=== PATIENT | female | born 1985 | race Caucasian/White ===

== ENCOUNTER 2017-04-09 12:15 | Observation (INO) | payer OTHER ==
[~2017-04-09] VITALS: Ht 162.6 cm; Wt 75.3 kg
[~2017-04-09 12:15] MED LIST: IBUP-2070 BU; PREN1TAB80 PO
[2017-04-09 13:11] VITALS: BP 100/62
[2017-04-09] MEDS ORDERED: RINGERS SOLUTION,LACTATED 1,000 ML IV SCH (14:45)
[2017-04-09] MEDS ORDERED: RINGERS SOLUTION,LACTATED 1,000 ML IV ONE (14:45)
[2017-04-09] MEDS ORDERED: NIFEdipine 10 MG CAPSULE PO ONE (14:45)
== END 2017-04-09 20:00 | disposition home or self-care (01) ==
LOC: 4S 12:15
PROVIDERS: ADMIT Obstetrics & Gynecology; ATTEND Obstetrics & Gynecology
DX: O26.893 Other specified pregnancy related conditions, third trimester (principal); R10.30 Lower abdominal pain, unspecified; Z3A.36 36 weeks gestation of pregnancy
CPT/HCPCS: 59025; 96360; 96361; G0378; J7120

== ENCOUNTER 2017-04-29 00:57 | Inpatient (IN) | payer OTHER ==
[~2017-04-29] VITALS: Ht 165.1 cm; Wt 74.8 kg
[2017-04-29] MEDS ORDERED: OXYTOCIN 30 UNITS/LACT RINGERS 500 ML IV ONE ×2 (02:10→02:12)
[2017-04-29] MEDS ORDERED: RINGERS SOLUTION,LACTATED 1,000 ML IV ONE (02:10)
[2017-04-29] MEDS ORDERED: RINGERS SOLUTION,LACTATED 1,000 ML IV PRN (02:12)
[2017-04-29] MEDS ORDERED: METOCLOPRAMIDE HCL 5 MG/ML 2 ML VIAL IVP PRN (02:15)
[2017-04-29] MEDS ORDERED: CITRIC ACID/SODIUM CITRATE 30 ML SOLUTION UDCUP PO PRN (02:15)
[2017-04-29] MEDS ORDERED: FentaNYL CITRATE-PF 100 MCG/2 ML VIAL IVP PRN (02:15)
[2017-04-29 02:50] LABS: BASOPHILS % (AUTO) 0.1 % (0.0-2.0); EOSINOPHILS % (AUTO) 0.5 % (1.0-6.0); HEMATOCRIT 37.3 % (36-46); HEMOGLOBIN 12.8 g/dL (12.0-16.0); LYMPHOCYTES % (AUTO) 18.8 % (22.0-44.0); MEAN CORPUSCULAR HEMOGLOBIN 31.1 pg (26.0-34.0); MEAN CORPUSCULAR HGB CONC 34.3 G/dL (31.0-37.0); MEAN CORPUSCULAR VOLUME 91 fL (80-100); MONOCYTES # (AUTO) 0.5 K/uL (0.1-1.0); MONOCYTES % (AUTO) 4.8 % (2.0-9.0); NEUTROPHILS # (AUTO) 7.9 K/uL (1.8-7.7); NEUTROPHILS % (AUTO) 75.8 % (40.0-70.0); RED BLOOD CELL COUNT(AUTO) 4.11 MIL/uL (4.00-5.20); RED CELL DISTRIBUTION WIDTH 12.4 % (11.5-14.5); WHITE BLOOD COUNT (AUTO) 10.5 K/uL (4.5-11.0)
[2017-04-29] MEDS ORDERED: LIDOCAINE HCL 2%/EPI 1:200,000/PF 10 ML VIAL ONE ×2 (03:06→08:09)
[2017-04-29] MEDS ORDERED: FentaNYL CITRATE-PF 100 MCG/2 ML VIAL ONE ×2 (03:06→08:14)
[2017-04-29] MEDS ORDERED: FentaNYL/BUPIV 0.125%/NS/PF 200 ML ED ONE (03:06)
[2017-04-29] MEDS: RINGERS SOLUTION,LACTATED 1,000 ML IV SCH ×3 (03:50→10:57)
[2017-04-29] MEDS ORDERED: PROMETHAZINE HCL 12.5 MG in SODIUM CHLORIDE 0.9% 50 ML IV PRN (04:15)
[2017-04-29] MEDS ORDERED: NALBUPHINE HCL 10 MG/ML VIAL IVP PRN (04:15)
[2017-04-29] MEDS ORDERED: ONDANSETRON HCL 4 MG/2 ML VIAL IVP PRN (04:15)
[2017-04-29] MEDS ORDERED: DiphenhydrAMINE HCL 50 MG/ML VIAL IVP PRN (04:15)
[2017-04-29 05:36] VITALS: BP 106/70
[2017-04-29] MEDS ORDERED: OXYGEN THERAPY IH SCH (08:00)
[2017-04-29] MEDS ORDERED: LIDOCAINE HCL/PF 1% 30 ML VIAL INJ PRN (08:45)
[2017-04-29] MEDS ORDERED: METHYLERGONOVINE MALEATE 0.2 MG/ML VIAL IM PRN (08:45)
[2017-04-29] MEDS ORDERED: OXYTOCIN 20 UNITS/LACT RINGERS 1,000 ML IV SCH (10:20)
[2017-04-29] MEDS ORDERED: LANOLIN 7 GM OINTMENT TP PRN (10:30)
[2017-04-29] MEDS ORDERED: ACETAMINOPHEN/CODEINE 300-30 MG TABLET PO PRN (10:30)
[2017-04-29] MEDS ORDERED: GLYCERIN/WITCH HAZEL LEAF 40 PADS JAR TP PRN (10:30)
[2017-04-29] MEDS ORDERED: MEASLES/MUMPS/RUBELLA VACCINE, LIVE 0.5 ML/VIAL SQ ONE (10:30)
[2017-04-29] MEDS ORDERED: BENZOCAINE 20%/MENTHOL 56 GM SPRAY CANISTER TP PRN (10:30)
[2017-04-29] MEDS: IBUPROFEN 600 MG TABLET PO PRN ×2 (10:58→11:58)
[2017-04-29] MEDS: MAGNESIUM HYDROXIDE SUSPENSION 30 ML UDCUP PO PRN (20:49)
[2017-04-29] MEDS: SENNA/DOCUSATE SODIUM 187-50 MG TABLET PO PRN (20:49)
[2017-04-30] MEDS ORDERED: IBUP-2070 PO (01:01)
[2017-04-30] MEDS: IBUPROFEN 600 MG TABLET PO PRN (04:38)
[2017-04-30 06:11] LABS: BASOPHILS % (AUTO) 0.1 % (0.0-2.0); EOSINOPHILS % (AUTO) 0.9 % (1.0-6.0); HEMATOCRIT 35.2 % (36-46); HEMOGLOBIN 11.9 g/dL (12.0-16.0); LYMPHOCYTES # (AUTO) 2.2 K/uL (1.0-4.8); LYMPHOCYTES % (AUTO) 26.9 % (22.0-44.0); MEAN CORPUSCULAR HEMOGLOBIN 30.8 pg (26.0-34.0); MEAN CORPUSCULAR HGB CONC 33.7 G/dL (31.0-37.0); MEAN CORPUSCULAR VOLUME 91 fL (80-100); MONOCYTES # (AUTO) 0.5 K/uL (0.1-1.0); NEUTROPHILS # (AUTO) 5.5 K/uL (1.8-7.7); NEUTROPHILS % (AUTO) 66.1 % (40.0-70.0); RED BLOOD CELL COUNT(AUTO) 3.85 MIL/uL (4.00-5.20); RED CELL DISTRIBUTION WIDTH 12.9 % (11.5-14.5); WHITE BLOOD COUNT (AUTO) 8.3 K/uL (4.5-11.0)
[2017-04-30] MEDS: MAGNESIUM HYDROXIDE SUSPENSION 30 ML UDCUP PO PRN (09:36)
[2017-04-30] MEDS: SENNA/DOCUSATE SODIUM 187-50 MG TABLET PO PRN (09:36)
== END 2017-04-30 12:40 | disposition home or self-care (01) | DRG 775 ==
LOC: OBSVTOIN 00:57 → 4S 00:57
PROVIDERS: ADMIT Obstetrics & Gynecology; ATTEND Obstetrics & Gynecology
PROC: 10E0XZZ Delivery of Products of Conception, External Approach (ICD-10-PCS; principal; 2017-04-29)
PROC: 0KQM0ZZ Repair Perineum Muscle, Open Approach (ICD-10-PCS; 2017-04-29)
PROC: 3E0S3CZ (ICD-10-PCS; 2017-04-29)
PROC: 00HU33Z Insertion of Infusion Device into Spinal Canal, Percutaneous Approach (ICD-10-PCS; 2017-04-29)
DX: O69.81X0 Labor and delivery complicated by cord around neck, without compression, not applicable or unspecified (principal); O77.0 Labor and delivery complicated by meconium in amniotic fluid; O70.1 Second degree perineal laceration during delivery; Z37.0 Single live birth; Z3A.39 39 weeks gestation of pregnancy
CPT/HCPCS: 86850; 86900; 86901; J2590; J3010; J3490; J7120